=== PATIENT | female | born 1955 | race Two or more races ===

== ENCOUNTER 2022-12-11 16:09 | Emergency (ER) | payer BC ==
[~2022-12-11] VITALS: Ht 167.6 cm; Wt 77.1 kg
[2022-12-11 16:11] VITALS: BP 137/78; PULSE 74; RESP 16; TEMP 98.5; O2SAT 100
[2022-12-11 17:58] LABS: CLARITY URINE CLOUDY (CLEAR); COLOR URINE YELLOW (YELLOW); GLUCOSE URINE NEGATIVE (NEGATIVE); KETONES URINE TRACE (NEGATIVE); LEUKOCYTE ESTERASE URINE 3+ (NEGATIVE); NITRITE URINE NEGATIVE (NEGATIVE); OCCULT BLOOD URINE 1+ (NEGATIVE); PH URINE 5.5 (4.5-8.0); PROTEIN URINE TRACE (NEGATIVE); SPECIFIC GRAVITY URINE 1.025 (1.005-1.030); UROBILINOGEN URINE 0.2 E.U./dL (0.2-1.0)
[2022-12-11 18:18] LABS: BACTERIA URINE 3+; SQUAMOUS EPITHELIAL CELL URINE 2+ /lpf (RARE/1+); WBC URINE 15-25 /hpf (0-2)
[2022-12-11] MEDS ORDERED: CEFP100T8 MT (18:21)
== END 2022-12-11 18:40 | disposition home or self-care (01) ==
LOC: ER 16:09
DX: N39.0 Urinary tract infection, site not specified (principal)
CPT/HCPCS: 81003; 99283